=== PATIENT | female | born 1995 ===

== ENCOUNTER 2024-01-03 10:41 | Emergency (ER) | payer BC ==
[2024-01-03 11:31] LABS: APPEARANCE,URINE CLOUDY (CLEAR); BILIRUBIN,URINE NEGATIVE (NEGATIVE); COLOR,URINE YELLOW (YELLOW); GLUCOSE,URINE NEGATIVE (NEGATIVE); KETONES,URINE NEGATIVE (NEGATIVE); LEUKOCYTE ESTERASE,URINE MODERATE (NEGATIVE); NITRITE,URINE NEGATIVE (NEGATIVE); OCCULT BLOOD,URINE LARGE (NEGATIVE); PROTEIN,URINE 100 (NEGATIVE); UROBILINOGEN,URINE 0.2 mg/dL (0.2-1.0)
[2024-01-03 11:40] LABS: AMORPHOUS SEDIMENT,URINE FEW /HPF (NOT SEEN); BACTERIA,URINE FEW /HPF (0-FEW/HPF); EPITHELIAL CELLS,URINE FEW /HPF (NOT SEEN); MUCUS,URINE FEW /LPF (NOT SEEN); RBC,URINE SEMI-PACKED /HPF (0-5); WBC,URINE SEMI-PACKED /HPF (0-5/HPF)
[2024-01-03] MEDS: Take Home: Sulfamethoxazole/Trimethoprim 800-160 MG Tab, 6 Tab Pack PO ONE (12:23)
== END 2024-01-03 12:37 | disposition home or self-care (01) ==
LOC: DL.ED 10:41
DX: N39.0 Urinary tract infection, site not specified (principal); Z91.013 Allergy to seafood
CPT/HCPCS: 81001; 81025; 87086; 99283; A9270; 87088; 87186